=== PATIENT | male | born 1940 | race Caucasian/White ===

== ENCOUNTER 2020-02-29 00:32 | Outpatient (CLI) | payer MEDICARE, SELFPAY ==
[2020-02-29 17:26] LABS: SARS-CoV-2 RNA PCR Negative
== END 2020-02-29 00:33 | disposition home or self-care (01) ==
LOC: ANHCOVIDDT 00:32
PROVIDERS: PCP Internal Medicine; Visit Provider Internal Medicine Critical Care Medicine
DX: Z20.828 Contact with and (suspected) exposure to other viral communicable diseases (principal)
CPT/HCPCS: 87635; C9803; U0003

== ENCOUNTER 2020-03-02 07:21 | Outpatient (CLI) | payer MEDICARE, SELFPAY ==
--- NOTE | 2020-03-18 00:05 | WPDSLEEPSTUD ---
Sleep Study Date of Study: 03/02/20 Ordering Provider: Petr Boykin DO Interpreting Physician: Belen Simpson MD Sleep Study Type: Polysomnogram Height: 1.88 m Weight: 104.326 kg Body Mass Index: 29.5 [place]: 3 Reason for Sleep Study Hypersomnolence Sleep History Mello Sena is an 79 yo man with Parkinson's disease who has hypersomnolence. He was scheduled for a split night study however did not meet criteria in the allotted time. He did not complete the sleep survey, however he filled out a few sections of it. His bedtime is between midnight and 2:00 a.m. taking 30 minutes to an hour to fall asleep, typically waking 3-4 times at night for 5 minutes. During these awakenings he goes to the bathroom. He wakes in the morning between 8:00 a.m. and 12 noon. he estimates getting between 4 and 6 hours of sleep at night. Weekend schedule is the same. He rarely awakens feeling refreshed. He occasionally has daytime sleepiness. He denies morning headaches, memory or concentration problems, and his sleepiness does not affect his daytime functioning. 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 Family History Family History (Updated 02/05/16 @ 16:09 by DOCTOR UNKNOWN) Father Family history of cardiovascular disease Mother Family history of cardiovascular disease Other Hypertension Social History Social History Smoking status: Former smoker Smoking end date: 06/16/09 Alcohol intake: never Medications amlodipine 5 mg tablet 5 mg PO DAILY aspirin 81 mg tablet,delayed release 81 mg PO DAILY atorvastatin 40 mg tablet 40 mg PO DAILY carbidopa 25 mg-levodopa 100 mg tablet 1 tablet PO BID cholecalciferol (vitamin D3) 125 mcg (5,000 unit) capsule 5,000 unit PO DAILY colestipol 5 gram oral granules 5 gm PO DAILY escitalopram oxalate 20 mg tablet 10 mg PO DAILY ferrous sulfate 325 mg (65 mg iron) tablet 325 mg PO DAILY glucosamine 500 hk-myuxuodjm-biqmmwue comp 400 mg-D3 667 unit-C-Mn cap cap hydralazine 25 mg tablet 25 mg PO BID tablet magnesium oxide 400 mg PO DAILY mecobalamin (vitamin B12) 1,000 mcg disintegrating tablet,sublingual 2,000 mcg SUBLINGUAL DAILY pantoprazole 40 mg tablet,delayed release 40 mg PO DAILY potassium chloride 20 mEq tablet,extended release 20 meq PO DAILY prednisolone 5 mg tablet 1.5 mg PO DAILY tablet tamsulosin 0.4 mg capsule 0.4 mg PO DAILY Sleep Procedure This attended study was performed using the [employer] multiple channel system including EOG, EEG, submental EMG, snore channel monitoring, nasal and oral airflow using thermistors and nasal pressure sensors, EKG, chest and abdominal belts for body position data, limb leads, pulse oximetry and video monitoring. The study was read using [facility] guidelines. The recording time was 484.2 minutes. Sleep time was 350.5 minutes. Sleep efficiency decreased at 72.4%. Sleep latency 21.4 minutes. REM latency extremely prolonged 202.5 minutes. There were 49 awakenings and the patient spent 24.3% of the study awake after sleep onset, 112.3 minutes. Sleep Architecture Sleep architecture showed 14.5% stage 1 sleep, 47.3% stage 2 sleep, 0% stage 3 sleep and 13.9% stage REM. The patient spent 5.1% of the study supine. Sleep architecture was extremely fragmented with constant shift between stage wake stage I and stage II. He also had extremely fragmented REM with shifts from REM to stage II, stage I and stage wake, returning to REM multiple times in one REM episode. Respiratory Analysis The apnea-hypopnea index was 10.4, obstructive index 8.9 and central index 1.5. There was no supine REM. In non-supine REM the patient
[2020-03-18 00:54] VITALS: BMI 29.5
== END 2020-03-02 07:22 | disposition home or self-care (01) ==
LOC: ANHCSM 07:21
PROVIDERS: PCP Internal Medicine; Visit Provider Internal Medicine Cardiovascular Disease
DX: G47.33 Obstructive sleep apnea (adult) (pediatric) (principal); G47.10 Hypersomnia, unspecified; I25.10 Atherosclerotic heart disease of native coronary artery without angina pectoris; R06.09 Other forms of dyspnea; E78.5 Hyperlipidemia, unspecified; I10 Essential (primary) hypertension; G20 Parkinson's disease; Z95.1 Presence of aortocoronary bypass graft
CPT/HCPCS: 95810

== ENCOUNTER 2020-03-29 01:09 | Outpatient (CLI) | payer MEDICARE, SELFPAY ==
[2020-03-29 18:39] LABS: SARS-CoV-2 RNA PCR Negative
== END 2020-03-29 01:10 | disposition home or self-care (01) ==
LOC: ANHCOVIDDT 01:09
PROVIDERS: PCP Internal Medicine; Visit Provider Internal Medicine Critical Care Medicine
DX: Z01.812 Encounter for preprocedural laboratory examination (principal); Z20.828 Contact with and (suspected) exposure to other viral communicable diseases
CPT/HCPCS: 87635; C9803; U0003

== ENCOUNTER 2020-03-31 15:34 | Outpatient (CLI) | payer MEDICARE, SELFPAY ==
--- NOTE | 2020-04-26 14:30 | WPDSLEEPSTUD ---
Sleep Study Date of Study: 03/31/20 Ordering Provider: Petr Boykin DO Interpreting Physician: Belen Simpson MD Sleep Study Type: CPAP Titration Height: 1.88 m Weight: 106.594 kg Body Mass Index: 30.2 Neck Circumference: 41.91 cm [place]: 2 Reason for Sleep Study Prior sleep study on 03/02/2020 with mild obstructive sleep apnea AHI 10.4, severe in the supine position AHI 74 with desaturation to 85%, he had excessive limb movements with a limb movement index of 213.5 which can disrupt sleep. He takes escitalopram which can increase limb movements during sleep. He had loud snoring. Sleep History Mello Sena is an 79 yo man with Parkinson's disease who has hypersomnolence, had a basic sleep study on March 02, did not meet criteria for it to be a split night study. He completed the sleep Question air prior to the CPAP titration. He denies waking from sleep feeling short of breath, denies heartburn, belching or coughing at night, denies snoring, denies all issues related to breathing at night including denies gasping for breath, sweating excessively, noticing his heart pounding at night, falling asleep during the day, involuntarily as well as driving. He denies loss of muscle tone was strong emotion, daytime difficulties due to excessive sleepiness, feeling paralyzed when waking or falling asleep and denies vivid dreamlike scenes upon awakening or falling asleep. He denies feeling afraid to go to sleep, denies nightmares and does not remember his dreams. He occasionally has racing thoughts. He denies feeling sad or depressed. He rarely feels anxious. He denies muscular tension or noticing parts of his body jerking. He denies kicking at night. He denies any crawling or aching feelings in his legs or leg pain at night. He does not have morning jaw pain. He does not grind his teeth during sleep. He is not bothered by pain during the day or awakened by pain at night. He occasionally wakes up feeling stiff in the morning. He does not have sore achy muscles. He rarely wakes up with pain in the neck and spine. His bedtime is midnight taking 1-2 hours to fall asleep, typically waking 3-4 times at night for 5 minutes. During these awakenings he goes to the bathroom. He wakes in the morning between 6:00 a.m. to 8:00 a.m. and estimates getting 4 hours of sleep at night. Weekend schedule is the same. He rarely awakens feeling refreshed. He takes naps in the day. A short nap may be refreshing. He occasionally has daytime sleepiness. He feels better in the afternoon compared to the morning. He denies morning headaches, memory or concentration problems, and his sleepiness does not affect his daytime functioning. Habits: Quit tobacco in 1983. No caffeine, alcohol, or recreational drugs. PMH: He reports having Parkinson's disease, hypertension, diabetes, coronary artery disease with a bypass x 4 vessels in 2018. 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
[2020-04-26 15:29] VITALS: BMI 30.2
== END 2020-03-31 15:35 | disposition home or self-care (01) ==
LOC: ANHCSM 15:34
PROVIDERS: PCP Internal Medicine; Visit Provider Internal Medicine Cardiovascular Disease
DX: G47.33 Obstructive sleep apnea (adult) (pediatric) (principal); G47.61 Periodic limb movement disorder
CPT/HCPCS: 95811

== ENCOUNTER 2021-09-24 12:06 | Outpatient (CLI) | payer MEDICARE, SELFPAY ==
--- NOTE | 2021-09-24 12:41 | ECHO_ITS ---
Patient Info Name: Mello Sena Age: 81 years : 1940 Gender: Male Ht: 74 in Wt: 235 lbs BSA: 2.38 m2 HR: 93 bpm BP: 152 / 78 mmHg Technical Quality: Fair Exam Date: 09/24/2021 1:07 PM Exam Location: [facility] Pulmonary Patient Status: Outpatient Admit Date: 09/24/2021 Staff Ordering Physician: Petr Boykin DO Web Designer: Rosalie Draper RDCS Attending Provider: Petr Boykin DO Referring Physician: Ashutosh ARREDONDO; Exam Type: CA echo doppler color flow Study Info Indications - OTHER FORMS OF DYSPNEA CAD CABG Complete two-dimensional, color flow and Doppler transthoracic echocardiogram is performed. Summary 1. Complete two-dimensional, color flow and Doppler transthoracic echocardiogram is performed. 2. Left ventricular chamber dimension is normal. 3. Left ventricular systolic function is normal, estimated at 65-70%. 4. The left ventricular diastolic function is grade I diastolic dysfunction. 5. E/e' 13 is mildly elevated. 6. Left atrial chamber dimension is moderately enlarged. 7. Right atrial chamber dimension is mildly enlarged. 8. There is mild aortic valve sclerosis. 9. There is mild to moderate aortic valve regurgitation. 10. The mitral valve has severely calcified annulus. 11. No pulmonary hypertension, estimated pulmonary arterial systolic pressure is 32 mmHg. Left Ventricle E/e' 13 is mildly elevated. Left ventricular chamber dimension is normal. Left ventricular systolic function is normal, estimated at 65-70%. The left ventricular diastolic function is grade I diastolic dysfunction. Right Ventricle Right ventricular chamber dimension is normal. Right ventricular systolic function is normal. Left Atria Left atrial chamber dimension is moderately enlarged. Right Atria Right atrial chamber dimension is mildly enlarged. Aortic Valve The aortic valve is trileaflet. There is mild aortic valve sclerosis. There is no aortic valve stenosis. There is mild to moderate aortic valve regurgitation. Pulmonic Valve There is no pulmonic regurgitation. Mitral Valve The mitral valve has severely calcified annulus. There is no mitral valve stenosis. There is no mitral valve regurgitation. Tricuspid Valve There is no tricuspid valve regurgitation. No pulmonary hypertension, estimated pulmonary arterial systolic pressure is 32 mmHg. Pericardium/Pleural There is no pericardial effusion. Inferior Vena Cava Normal inferior vena cava with >50% collapse upon inspiration consistent with normal right atrial pressure, 5 mmHg. Aorta The aortic root size at the sinus of Valsalva is normal. Left Ventricular Outflow Tract Name Value Normal LVOT 2D LVOT Diameter 2.1 cm LVOT Doppler LVOT Peak Gradient 7 mmHg LVOT Mean Gradient 5 mmHg LVOT VTI 24 cm LVOT VTI/AV VTI Ratio 1.0 LVOT Stroke Volume 85 ml LVOT CO 22.0 l/min LVOT CI 9.2 l/min/m2 Pulmonic Valve
== END 2021-09-24 12:07 | disposition home or self-care (01) ==
LOC: ANHCARD 12:08
PROVIDERS: PCP Internal Medicine; Visit Provider Internal Medicine Cardiovascular Disease
DX: R06.00 Dyspnea, unspecified (principal); R06.09 Other forms of dyspnea; I35.1 Nonrheumatic aortic (valve) insufficiency
CPT/HCPCS: 93306

== ENCOUNTER 2023-03-11 13:39 | Outpatient (CLI) | payer MEDICARE, SELFPAY ==
--- NOTE | ~2023-03-11 | MR_ITS ---
EXAMINATION: MR abdomen wo/w con DATE: 03/11/2023 15:34 INDICATION: Left renal mass TECHNIQUE: Magnetic resonance imaging (MRI) of the abdomen was performed without and with 19 mL Multi brian intravenous contrast. Sequences included coronal T2-weighted SS-FSE, coronal and axial FS 2D-F IESTA, axial STIR FSE, axial T2-weighted SS-FSE, axial T2-weighted FS SS-FSE, axial diffusion-weighte d SE, axial dual-echo T1-weighted FSPGR, and axial and coronal T1-weighted LAVA. Postcontrast axial T 1-weighted LAVA images were obtained in a time course. Postcontrast coronal T1-weighted LAVA images w ere obtained. COMPARISON: None. FINDINGS: Cardiac medically. No pericardial or pleural effusion. There are several scattered subcentimeter T2 h yperintense nonenhancing cysts in the liver and a couple in the spleen. There are several subcentimet er T2 hyperintense nonenhancing cystic lesions in the body and tail of the pancreas which appears nic sely associated with the main pancreatic duct likely representing other pancreatic pseudocysts or dil ated pancreatic ductal side branches related to chronic pancreatitis. No enhancing soft tissue compon ents. There are also bilateral T2 hyperintense nonenhancing cysts in both kidneys the largest on the left measuring 9.3 cm. There is a 1.5 cm T2 hypointense, T1 hyperintense nonenhancing proteinaceous/h emorrhagic exophytic cyst at the lower pole of the left kidney. Visualized portion of the bowels are unremarkable with no obstruction. Visualized portion of the bladder is unremarkable. No pathologicall y enlarged abdominal or pelvic lymphadenopathy. 20 degrees lumbar dextroscoliosis with severe spondyl osis. IMPRESSION: 1. Bilateral renal cysts including a 1.5 cm proteinaceous/hemorrhagic and exophytic cyst at the lower pole of the left kidney. 2. Multiple subcentimeter cystic lesions in the body and tail the pancreas. The differential diagnosi s includes pseudocyst, dilated pancreatic ductal side branches, intraductal papillary mucinous neopla sm (IPMN), mucinous cystic neoplasm (MCN), and the less common serous cystadenoma and neuroendocrine tumor. The multiplicity favors pseudocysts or dilated pancreatic ductal side branches related to prio r pancreatitis. Correlate for history of pancreatitis. Reviewed, dictated and finalized at location A. IMPRESSION: 1. Bilateral renal cysts including a 1.5 cm proteinaceous/hemorrhagic and exoph ytic cyst at the lower pole of the left kidney. 2. Multiple subcentimeter cystic lesions in the body and tail the pancreas. The differential diagnosis includes pseudocyst, dilated pancreatic ductal side bra nches, intraductal papillary mucinous neoplasm (IPMN), mucinous cystic neoplasm (MCN), and the less common serous cystadenoma and neuroendocrine tumor. The mu ltiplicity favors pseudocysts or dilated pancreatic ductal side branches relate d to prior pancreatitis. Correlate for history of pancreatitis.
== END 2023-03-11 13:40 | disposition home or self-care (01) ==
LOC: ANHIMG 13:44
PROVIDERS: PCP Physician Assistant Medical; Visit Provider Urology
DX: D49.512 Neoplasm of unspecified behavior of left kidney (principal); Q61.02 Congenital multiple renal cysts; K86.2 Cyst of pancreas; N28.89 Other specified disorders of kidney and ureter
CPT/HCPCS: 74183; A9577

== ENCOUNTER 2023-08-14 14:12 | Outpatient (CLI) | payer MEDICARE, SELFPAY ==
--- NOTE | ~2023-08-14 | MR_ITS ---
MRI of the lumbar spine Clinical History: Spinal stenosis Technique: Axial T2-weighted images, and sagittal T1-weighted, T2-weighted, and T2 fat-sat images wer e acquired. Findings: No fracture seen. There is minimal grade 1 retrolisthesis of L5 over S1. No suspicious bone marrow signal abnormality identified. At L1-L2, there is mild degenerative disc change. There is disc bulge and moderate facet arthropathy, resulting in mild to moderate spinal canal stenosis/thecal sac compression. There is mild right neur al foraminal narrowing, and moderate left neural foraminal narrowing. At L2-L3, there is severe degenerative disc narrowing. Disc bulge and advanced facet arthropathy resu lt in severe spinal canal stenosis/thecal sac compression. There is severe left neural foraminal narr owing, and mild right neural foraminal narrowing. At L3-L4, there is disc bulge and severe facet arthropathy, resulting in severe spinal canal stenosis /thecal sac compression. There is severe left neural foraminal compromise, and moderate right neural foraminal compromise. At L4-L5, disc bulge and severe facet arthropathy result in severe spinal canal stenosis/thecal sac c ompression. There is severe bilateral neural foraminal compromise, right worse than left. At L5-S1, there is diffuse disc bulge with possible superimposed left paracentral protrusion. There i s moderate facet arthropathy. No cynthia central canal stenosis. There is severe right neural foraminal narrowing, and minimal left neural foraminal narrowing. Paravertebral soft tissues are unremarkable. Impression: Severe degenerative spondylosis, as detailed above. Reviewed, dictated and finalized at location M. R MARKER Impression: Severe degenerative spondylosis, as detailed above.
== END 2023-08-14 14:13 | disposition home or self-care (01) ==
PROVIDERS: PCP Physician Assistant Medical; Visit Provider Physician Assistant Medical
DX: M48.062 Spinal stenosis, lumbar region with neurogenic claudication (principal); M43.06 Spondylolysis, lumbar region
CPT/HCPCS: 72148

== ENCOUNTER 2023-11-05 11:16 | Outpatient (CLI) | payer MEDICARE, SELFPAY ==
--- NOTE | 2023-11-05 11:36 | ECG_ITS ---
SEE SCANNED COPY FOR CONFIRMED REPORT MTDD
[2023-11-05 12:23] LABS: Hematocrit 41.4 % (42.0-52.0); Hemoglobin 13.6 g/dL (14.0-18.0); Mean Corpuscular HGB Conc 32.9 g/dl (32-36); Mean Corpuscular Hemoglobin 28.1 pg (26-34); Mean Corpuscular Volume 85.5 fl (80-100); Mean Platelet Volume 10.1 fl (7.4-10.4); Platelet Count Result 155 k/mm3 (150-375); Red Blood Count 4.84 M/mm3 (4.6-6.20); Red Cell Distribution Width 14.5 % (11.5-14.5); White Blood Count 11.2 K/mm3 (4.5-10.0)
[2023-11-05 12:26] LABS: Appearance Urine Clear (Clear); Bacteria Urine None Seen /hpf; Bilirubin Urine Negative (Negative); Blood Urine Negative (Negative); Color Urine Yellow (Yellow); Glucose Urine UA Negative (Negative); Ketones Urine Negative (Negative); Leukocyte Esterase Ur Trace LEU/UL (Negative); Nitrate Urine Negative (Negative); Protein Urine 1+ mg/dL (Negative); RBC Urine 0-2 /hpf (0-2); Specific Grav Ur 1.013 (1.001-1.035); Squamous Epithelial Cell Urine None Seen /hpf (Few); Urobilinogen Urine 0.2 mg/dL (<2.0); WBC Urine 0-5 /hpf (0-3); pH Urine 5.5 (5.0-9.0)
[2023-11-05 12:29] LABS: Add Urine Microscopic? YES
[2023-11-05 12:33] LABS: Anion Gap 7 mmol/L (4-12); Blood Urea Nitrogen 16 mg/dL (9-20); Calcium 8.5 mg/dL (8.4-10.2); Carbon Dioxide 24 mmol/L (22-30); Chloride 108 mmol/L (98-107); Estimated Glomerular Filt Rate 53; Glucose 93 mg/dL (65-110); Potassium 3.4 mmol/L (3.4-5.0); Sodium 139 mmol/L (137-145)
[2023-11-05 12:35] LABS: Prothrombin Time 14.1 Seconds (11.1-14.7)
[2023-11-05 12:45] LABS: Hemoglobin A1C 5.9 % (<5.7); Partial Thromboplastin Time 28.9 Seconds (22.3-36.8)
== END 2023-11-05 11:17 | disposition home or self-care (01) ==
LOC: ANHSURGERY 11:19
PROVIDERS: PCP Physician Assistant Medical; Visit Provider Neurological Surgery
DX: Z01.818 Encounter for other preprocedural examination (principal); M48.062 Spinal stenosis, lumbar region with neurogenic claudication; E11.9 Type 2 diabetes mellitus without complications; I10 Essential (primary) hypertension
CPT/HCPCS: 36415; 80048; 81001; 83036; 85027; 85610; 85730; 93005

== ENCOUNTER 2023-11-11 00:55 | Day surgery (SDC) | payer MEDICARE, SELFPAY ==
--- NOTE | 2023-11-03 10:43 | PC.NURSE ---
Report to the Outpatient Waiting Room, entrance under the green pavilion located off [facility], at time ___6:00 AM____ on date _11/11/23 . Planned Procedure Time: __7:30 AM . Time changes happen often and if your time is changed the preop area will call you the afternoon before. - You and your visitor will be asked to self-screen and do not enter if you have any COVID symptoms. - A mask is optional within the hospital at this time. Patients may have clear liquids (water, carbonated beverages, clear teas, apple juice) until 3 hours prior to surgery ( 4:30AM)with a maximum of 20 ounces. - No food from midnight until time of surgery - Infants may have breast milk until 4 hours before surgery, infant formula 6 hours prior to surgery. - Children will be allowed to drink immediately following surgery. If applicable, please bring a bottle or sippy cup to assist with drinking. Juice, water, soda, and popsicles are readily available. For infants on formula, please bring formula the day of surgery. Pacifiers are allowed. Take the following medications with a SIP of water the morning of surgery: __AMLODIPINE,CARBIDOPA-LEVODOPA,ESCITALOPRAM,HYDRALAZINE_PREDNISONE DO NOT STOP ANY OF YOUR OTHER PRESCRIPTION MEDICATIONS PRIOR TO SURGERY ?EXCEPT THE FOLLOWING Medications to discontinue per physician __HOLD ALL VITAMINS AND SUPPLEMENTS 3 DAYS PRE OP.LAST DOSE 11/07/23. PT STATES HOLD ASPIRIN ___7 DAYS PRE OP PER DR HERNANDEZ LAST DOSE 11/03/23 Please no make-up, nail citizen of [place], hairspray, perfume, deodorant, or body powder the day of surgery. No jewelry (including any body piercings) or valuables the day of surgery, leave them at home. Please take a shower or bath the night before, or the morning of, surgery with an antibacterial soap. Wear comfortable, loose fitting clothing. Children are encouraged to wear pajamas. - Jewelry must be removed prior to entering the operating room. Rings and piercings that are not removed may be cut off. - The hospital will not accept responsibility for valuables. - Please leave all valuables, including medications, at home the day of surgery. If you are going home after surgery, a licensed hydraulic lift driver must drive you home. - NO public transportation without another adult if you receive anesthesia. - We recommend that an adult stay with you for 24 hours following discharge. - We also recommend that you do not drive, make important decision, drink alcoholic beverages, or take any drugs that were not prescribed by your health care provider for at least 24 hours after your discharge time. Follow any additional instructions given to you from your surgeon. If you or anyone in your household have experienced Covid symptoms in the past week, please notify your surgeon or the nurse liaison at the phone number below for possible testing. Telephone instructions given to __PATIENT and asked if any additional questions and then verbalized understanding. Patient advised to call surgeon office or pre surgery nurse liaison [phone] if any additional questions.
[2023-11-03 11:03] VITALS: BMI 28.0
[2023-11-11 06:05] VITALS: BP 141/65; PULSE 87; RESP 18; TEMP 36.4; O2SAT 98
[2023-11-11] MEDS: LACTATED RINGERS 1,000 ML 30 ML IV CONT (06:40)
[2023-11-11 07:04] LABS: Glucose Point of Care 108 mg/dl (65-105)
--- NOTE | 2023-11-11 11:12 | SUR.PREOP ---
[id number] DR JONES HAS SPOKEN WITH DR WALKER AND DR KELLY IN REGARDS TO PTS IRREGULAR HEART RATE AND RECENT AFIB EKG. PT SURGEY TO BE CANCELLED TODAY
== END 2023-11-11 08:55 | disposition home or self-care (01) ==
PROVIDERS: PCP Physician Assistant Medical; Visit Provider Neurological Surgery
PROC: (CPT 63005; principal; 2023-11-11 07:30)
DX: M48.062 Spinal stenosis, lumbar region with neurogenic claudication (principal); I49.9 Cardiac arrhythmia, unspecified; Z53.09 Procedure and treatment not carried out because of other contraindication
CPT/HCPCS: 82948; 99213; G0463; J3010; J7120